=== PATIENT | male | born 1940 | race Caucasian/White ===

== ENCOUNTER 2021-07-05 09:13 | Inpatient (IN) | payer MEDICARE, OTHER ==
[~2021-07-05] VITALS: Ht 188 cm; Wt 82.6 kg
[2021-07-05 09:41] LABS: HEMATOCRIT 47.5 % (42-54); MEAN CORPUSCULAR HEMOGLOBIN 29.9 pg (27.0-33.0); MEAN CORPUSCULAR HGB CONC 33.7 g/dL (32.0-36.0); MEAN CORPUSCULAR VOLUME 88.8 fL (79-99); RED BLOOD CELL COUNT(AUTO) 5.35 MIL/uL (4.50-6.20); RED CELL DISTRIBUTION WIDTH 13.5 % (11.0-15.5); WHITE BLOOD COUNT (AUTO) 6.7 K/uL (4.8-10.8)
[2021-07-05 10:23] LABS: ALBUMIN 3.5 g/dL (3.5-5.0); BILIRUBIN,TOTAL 0.3 mg/dL (0.2-1.0); CREATININE 1.2 mg/dL (0.5-1.5); POTASSIUM 4.5 mmol/L (3.5-5.1); TOTAL PROTEIN, SERUM 7.3 g/dL (6.0-8.3)
[2021-07-05] MEDS ORDERED: SOLU-MEDROL 125MG VIAL IVP ONE (10:30)
[2021-07-05] MEDS ORDERED: IPRATROPIUM/ALBUTEROL SULFATE 3 ML SOLUTION IH ONE (10:30)
[2021-07-05] MEDS ORDERED: ALBUTEROL INHALER 90MCG/INH IH ONE (10:37)
[2021-07-05] MEDS ORDERED: ALBUTEROL INHALER 90MCG/INH IH PRN (11:00)
[2021-07-05] MEDS ORDERED: ONDANSETRON 4MG INJ IV PRN (11:30)
[2021-07-05] MEDS ORDERED: HYDRALAZINE 20MG/ML VIAL IV PRN (11:30)
[2021-07-05] MEDS ORDERED: AZITHROMYCIN 250 MG TABLET PO ONE ×2 (11:30→12:48)
[2021-07-05] MEDS ORDERED: CEFTRIAXONE 1G VIAL IV SCH (11:30)
[2021-07-05] MEDS ORDERED: ACETAMINOPHEN 325 MG TAB PO PRN (11:30)
[2021-07-05] MEDS ORDERED: CEFTRIAXONE 1G VIAL IVP ONE (11:30)
[2021-07-05] MEDS: IPRATROPIUM/ALBUTEROL SULFATE 3 ML SOLUTION IH SCH ×2 (12:00→18:00)
[2021-07-05] MEDS ORDERED: IPRATROPIUM/ALBUTEROL SULFATE 3 ML SOLUTION IH PRN (13:00)
[2021-07-05 13:50] LABS: ABG BASE EXCESS -0.8 mmol/L (-2.0-3.0); ABG HCO3 24.5 mmol/L (21.0-28.0); ABG PCO2 43 mmHg (35-48)
[2021-07-05] MEDS ORDERED: ALBUTEROL INHALER 90MCG/INH IH SCH (14:00)
[2021-07-05] MEDS: FAMOTIDINE 20MG VIAL IV SCH (20:13)
[2021-07-06] MEDS: ACETAMINOPHEN 325 MG TAB PO PRN (00:44)
[2021-07-06] MEDS: IPRATROPIUM/ALBUTEROL SULFATE 3 ML SOLUTION IH SCH ×2 (06:00)
[2021-07-06 07:24] LABS: HEMATOCRIT 44.8 % (42-54); MEAN CORPUSCULAR HEMOGLOBIN 29.5 pg (27.0-33.0); MEAN CORPUSCULAR VOLUME 89.4 fL (79-99); RED BLOOD CELL COUNT(AUTO) 5.01 MIL/uL (4.50-6.20); RED CELL DISTRIBUTION WIDTH 13.2 % (11.0-15.5); WHITE BLOOD COUNT (AUTO) 7.4 K/uL (4.8-10.8)
[2021-07-06 07:46] LABS: CREATININE 1.2 mg/dL (0.5-1.5); POTASSIUM 4.2 mmol/L (3.5-5.1)
[2021-07-06] MEDS ORDERED: CEFEPIME HCL 2 GM VIAL IVP SCH (09:00)
[2021-07-06] MEDS ORDERED: DEXAMETHASONE 4 MG TAB PO SCH (09:00)
[2021-07-06] MEDS: FAMOTIDINE 20MG VIAL IV SCH (09:02)
[2021-07-06] MEDS: ENOXAPARIN SODIUM 40 MG/0.4 ML SYRINGE SQ SCH (09:03)
[2021-07-06] MEDS ORDERED: ALBUTEROL INHALER 90MCG/INH IH PRN (12:00)
[2021-07-06] MEDS ORDERED: IPRATROPIUM 0.5 MG/2.5 ML INH IH SCH (12:00)
[2021-07-06] MEDS: DEXAMETHASONE SOD PHOSPHATE 4 MG/ML 1ML VIAL IV SCH (12:09)
[2021-07-07 00:11] VITALS: BP 138/85
[2021-07-07 04:00] VITALS: BP 147/78
[2021-07-07] MEDS ORDERED: PHARMACY COMMUNICATION MISC SCH (07:00)
[2021-07-07] MEDS ORDERED: PHARMACY COMMUNICATION**REMDESIVIR MISC SCH (07:00)
[2021-07-07 07:28] LABS: BASOPHILS % (AUTO) 0.1 % (0.0-5.0); MEAN CORPUSCULAR HEMOGLOBIN 29.3 pg (27.0-33.0); MEAN CORPUSCULAR VOLUME 88.7 fL (79-99); MONOCYTES % (AUTO) 8.5 % (3.0-13.0); NEUTROPHILS % (AUTO) 77.7 % (40.0-77.0); PLATELET COUNT (AUTO) 180 K/uL (130-400); RED BLOOD CELL COUNT(AUTO) 4.85 MIL/uL (4.50-6.20); RED CELL DISTRIBUTION WIDTH 13.2 % (11.0-15.5); WHITE BLOOD COUNT (AUTO) 10.6 K/uL (4.8-10.8)
[2021-07-07 07:42] LABS: ALBUMIN 3.2 g/dL (3.5-5.0); BILIRUBIN,TOTAL 0.3 mg/dL (0.2-1.0); CREATININE 1.2 mg/dL (0.5-1.5); POTASSIUM 4.5 mmol/L (3.5-5.1); TOTAL PROTEIN, SERUM 6.9 g/dL (6.0-8.3)
[2021-07-07] MEDS: ACETAMINOPHEN 325 MG TAB PO PRN (07:42)
[2021-07-07 08:30] VITALS: BP 149/80
[2021-07-07] MEDS: ENOXAPARIN SODIUM 40 MG/0.4 ML SYRINGE SQ SCH (08:51)
[2021-07-07] MEDS ORDERED: ALBU18HF7 IH (10:06)
[2021-07-07] MEDS ORDERED: OMEP40CA21 PO (10:06)
[2021-07-07 12:00] VITALS: BP 138/70
[2021-07-07] MEDS: DEXAMETHASONE SOD PHOSPHATE 4 MG/ML 1ML VIAL IV SCH (12:06)
[2021-07-07] MEDS: CEFAZOLIN SODIUM 1 GM VIAL IVP SCH ×2 (13:22→23:57)
[2021-07-07 16:00] VITALS: BP 140/80
[2021-07-07] MEDS: BARICITINIB (EUA) 2 MG TABLET PO SCH (16:00)
[2021-07-07] MEDS ORDERED: CEPH500B PO (16:36)
[2021-07-07] MEDS ORDERED: DEXA6TAB PO (16:36)
[2021-07-07] MEDS ORDERED: ALBUTEROL INHALER 90MCG/INH IH PRN (17:00)
[2021-07-07 20:08] VITALS: BP 132/78
[2021-07-08 00:08] VITALS: BP 123/81
[2021-07-08 04:08] VITALS: BP 128/80
[2021-07-08 04:13] LABS: BASOPHILS % (AUTO) 0.1 % (0.0-5.0); EOSINOPHILS % (AUTO) 1.9 % (0.0-8.0); HEMATOCRIT 43.4 % (42-54); LYMPHOCYTES % (AUTO) 19.7 % (21.0-51.0); MEAN CORPUSCULAR HEMOGLOBIN 29.8 pg (27.0-33.0); MEAN CORPUSCULAR HGB CONC 33.2 g/dL (32.0-36.0); MEAN CORPUSCULAR VOLUME 89.7 fL (79-99); MONOCYTES % (AUTO) 9.8 % (3.0-13.0); NEUTROPHILS % (AUTO) 67.9 % (40.0-77.0); PLATELET COUNT (AUTO) 189 K/uL (130-400); RED BLOOD CELL COUNT(AUTO) 4.84 MIL/uL (4.50-6.20); RED CELL DISTRIBUTION WIDTH 13.2 % (11.0-15.5); WHITE BLOOD COUNT (AUTO) 8.9 K/uL (4.8-10.8)
[2021-07-08 04:32] LABS: ALBUMIN 3.2 g/dL (3.5-5.0); BILIRUBIN,TOTAL 0.3 mg/dL (0.2-1.0); CREATININE 1.1 mg/dL (0.5-1.5); POTASSIUM 4.9 mmol/L (3.5-5.1); TOTAL PROTEIN, SERUM 6.9 g/dL (6.0-8.3)
[2021-07-08] MEDS: ENOXAPARIN SODIUM 40 MG/0.4 ML SYRINGE SQ SCH (08:10)
[2021-07-08 09:09] VITALS: BP 153/88
[2021-07-08] MEDS: BARICITINIB (EUA) 2 MG TABLET PO SCH (10:21)
[2021-07-08] MEDS ORDERED: IPRATROPIUM 0.5 MG/2.5 ML INH IH PRN (11:00)
[2021-07-08 12:00] VITALS: BP 129/73
[2021-07-08] MEDS: CEFAZOLIN SODIUM 1 GM VIAL IVP SCH (12:32)
[2021-07-08] MEDS ORDERED: ALBUTEROL INHALER 90MCG/INH IH PRN (13:00)
[2021-07-08] MEDS ORDERED: REMDESIVIR (EUA) 520 200 MG in 0.9% NACL 250ML 250 ML IV ONE (14:00)
[2021-07-08] MEDS ORDERED: COMPOUND IV REFRIGERATED 1 EACH IVSOLN MISC PRN (14:00)
[2021-07-08 17:39] VITALS: BP 137/61
[2021-07-09] MEDS ORDERED: REMDESIVIR LABS MISC SCH (06:00)
[2021-07-09] MEDS ORDERED: PANTOPRAZOLE 40 MG TAB DR PO SCH (09:00)
[2021-07-09] MEDS ORDERED: DEXAMETHASONE 4 MG TAB PO SCH (13:00)
[2021-07-09] MEDS ORDERED: REMDESIVIR (EUA) 520 100 MG in 0.9% NACL 250ML 250 ML IV SCH (14:00)
== END 2021-07-08 18:45 | disposition home or self-care (01) | DRG 177 ==
LOC: EDH 09:13 → EDHIP 11:22 → 4BH 07-07 08:18
PROVIDERS: ADMIT Hospitalist; ATTEND Internal Medicine
PROC: 5A09357 Assistance with Respiratory Ventilation, Less than 24 Consecutive Hours, Continuous Positive Airway Pressure (ICD-10-PCS; principal; 2021-07-05)
PROC: 5A09357 Assistance with Respiratory Ventilation, Less than 24 Consecutive Hours, Continuous Positive Airway Pressure (ICD-10-PCS; 2021-07-07)
PROC: XW0DXM6 Introduction of Baricitinib into Mouth and Pharynx, External Approach, New Technology Group 6 (ICD-10-PCS; 2021-07-07)
PROC: XW033E5 Introduction of Remdesivir Anti-infective into Peripheral Vein, Percutaneous Approach, New Technology Group 5 (ICD-10-PCS; 2021-07-07)
DX: U07.1 COVID-19 (principal); J96.01 Acute respiratory failure with hypoxia; J12.82 Pneumonia due to coronavirus disease 2019; J44.1 Chronic obstructive pulmonary disease with (acute) exacerbation; J44.0 Chronic obstructive pulmonary disease with (acute) lower respiratory infection; G47.33 Obstructive sleep apnea (adult) (pediatric); K21.9 Gastro-esophageal reflux disease without esophagitis; B96.1 Klebsiella pneumoniae [K. pneumoniae] as the cause of diseases classified elsewhere; Z87.891 Personal history of nicotine dependence; Z87.442 Personal history of urinary calculi; Z86.12 Personal history of poliomyelitis
CPT/HCPCS: 36415; 36600; 71045; 80048; 80053; 82550; 82728; 82803; 83036; 83615; 83874; 83880; 84145; 84484; 85025; 85027; 85378; 86140; 87040; 87071; 87077; 87186; 87205; 87635; 87804; 93005; 93970; 94760; C9803; G0378; J0690; J0692; J0696; J1100; J1650; J2930; J3490; J7050; J8540

== ENCOUNTER 2021-07-28 12:38 | Observation (INO) | payer MEDICARE ==
[~2021-07-28] VITALS: Ht 175.3 cm; Wt 82.1 kg
[~2021-07-28 12:38] MED LIST: ALBU18HF7 IH; CEPH500B PO; DEXA6TAB PO; OMEP40CA21 PO
[2021-07-28 13:07] LABS: BASOPHILS % (AUTO) 0.5 % (0.0-5.0); EOSINOPHILS % (AUTO) 1.7 % (0.0-8.0); LYMPHOCYTES % (AUTO) 18.3 % (21.0-51.0); MEAN CORPUSCULAR HEMOGLOBIN 29.9 pg (27.0-33.0); MEAN CORPUSCULAR HGB CONC 33.5 g/dL (32.0-36.0); MEAN CORPUSCULAR VOLUME 89.3 fL (79-99); MONOCYTES % (AUTO) 10.4 % (3.0-13.0); NEUTROPHILS % (AUTO) 68.5 % (40.0-77.0); PLATELET COUNT (AUTO) 225 K/uL (130-400); RED BLOOD CELL COUNT(AUTO) 4.48 MIL/uL (4.50-6.20); RED CELL DISTRIBUTION WIDTH 13.1 % (11.0-15.5); WHITE BLOOD COUNT (AUTO) 7.9 K/uL (4.8-10.8)
[2021-07-28 13:17] LABS: CREATININE 1.1 mg/dL (0.5-1.5); POTASSIUM 3.9 mmol/L (3.5-5.1)
[2021-07-28 13:19] LABS: INR 1.01 (0.85-1.15)
[2021-07-28 13:21] LABS: PARTIAL THROMBOPLASTIN TIME 29.9 SEC (26.3-35.5)
[2021-07-28 13:22] LABS: ALBUMIN 3.1 g/dL (3.5-5.0); BILIRUBIN,TOTAL 0.3 mg/dL (0.2-1.0); TOTAL PROTEIN, SERUM 7.9 g/dL (6.0-8.3)
[2021-07-28] MEDS ORDERED: SOLU-MEDROL 125MG VIAL IVP ONE (13:30)
[2021-07-28] MEDS ORDERED: IPRATROPIUM/ALBUTEROL SULFATE 3 ML SOLUTION IH ONE (13:30)
[2021-07-28] MEDS ORDERED: ASPIRIN 325MG TAB PO ONE (13:30)
[2021-07-28] MEDS ORDERED: 0.9%NACL 1000ML 1,000 ML IV ONE (13:30)
[2021-07-28 13:34] LABS: B-TYPE NATRIURETIC PEPTIDE 56 pg/mL (0-100)
[2021-07-28] MEDS ORDERED: IOHEXOL 350 MG/ML 100ML INFUS..BTL IV ONE (14:38)
[2021-07-28] MEDS ORDERED: IOHEXOL-350 75 ML VIAL IV ONE (15:15)
[2021-07-28] MEDS ORDERED: ASPIRIN 325MG EC TAB PO ONE (15:53)
[2021-07-28] MEDS ORDERED: SOLU-MEDROL 125MG VIAL ONE (15:54)
[2021-07-28 17:19] LABS: HEMOGLOBIN A1C 6.4 % (4.0-6.0)
[2021-07-28] MEDS: FAMOTIDINE 20MG VIAL IV SCH (20:28)
[2021-07-28] MEDS ORDERED: AMIODARONE 900MG VIAL 540 MG in DEXTROSE 5%-WATER 300 ML IV STA (22:26)
[2021-07-28] MEDS ORDERED: AMIODARONE 900MG VIAL 360 MG in DEXTROSE 5%-WATER 200 ML IV SCH (22:30)
[2021-07-28] MEDS ORDERED: AMIODARONE 900MG VIAL 150 MG in DEXTROSE 5%-WATER 100 ML IV SCH (22:30)
[2021-07-28] MEDS: IPRATROPIUM/ALBUTEROL SULFATE 3 ML SOLUTION IH SCH (23:35)
[2021-07-29] MEDS: IPRATROPIUM/ALBUTEROL SULFATE 3 ML SOLUTION IH SCH ×3 (06:24→18:35)
[2021-07-29 06:30] LABS: BASOPHILS % (AUTO) 0.1 % (0.0-5.0); HEMATOCRIT 39.9 % (42-54); LYMPHOCYTES % (AUTO) 12.8 % (21.0-51.0); MEAN CORPUSCULAR HEMOGLOBIN 28.8 pg (27.0-33.0); MEAN CORPUSCULAR HGB CONC 32.1 g/dL (32.0-36.0); MEAN CORPUSCULAR VOLUME 89.7 fL (79-99); MONOCYTES % (AUTO) 2.2 % (3.0-13.0); NEUTROPHILS % (AUTO) 84.3 % (40.0-77.0); PLATELET COUNT (AUTO) 229 K/uL (130-400); RED BLOOD CELL COUNT(AUTO) 4.45 MIL/uL (4.50-6.20); RED CELL DISTRIBUTION WIDTH 13.1 % (11.0-15.5); WHITE BLOOD COUNT (AUTO) 6.7 K/uL (4.8-10.8)
[2021-07-29 06:42] LABS: CREATININE 1.1 mg/dL (0.5-1.5); POTASSIUM 4.8 mmol/L (3.5-5.1)
[2021-07-29] MEDS: SOLU-MEDROL 40MG VIAL IVP SCH ×2 (08:33→21:16)
[2021-07-29] MEDS: FAMOTIDINE 20MG VIAL IV SCH ×2 (08:33→21:16)
[2021-07-29] MEDS: ENOXAPARIN SODIUM 40 MG/0.4 ML SYRINGE SQ SCH (08:34)
[2021-07-29] MEDS: DOXYCYCLINE 100MG+NS 250ML IV SCH ×2 (11:03→21:34)
[2021-07-29 22:05] VITALS: BP 135/67
[2021-07-30] MEDS: IPRATROPIUM/ALBUTEROL SULFATE 3 ML SOLUTION IH SCH ×3 (00:48→11:15)
[2021-07-30 04:42] VITALS: BP 110/81
[2021-07-30 08:00] VITALS: BP 126/68
[2021-07-30 08:54] LABS: MEAN CORPUSCULAR HEMOGLOBIN 30.2 pg (27.0-33.0); MEAN CORPUSCULAR HGB CONC 33.5 g/dL (32.0-36.0); MEAN CORPUSCULAR VOLUME 90.2 fL (79-99); RED BLOOD CELL COUNT(AUTO) 4.1 MIL/uL (4.50-6.20); RED CELL DISTRIBUTION WIDTH 13.5 % (11.0-15.5); WHITE BLOOD COUNT (AUTO) 13.4 K/uL (4.8-10.8)
[2021-07-30 09:03] LABS: CREATININE 1.3 mg/dL (0.5-1.5); POTASSIUM 4.1 mmol/L (3.5-5.1)
[2021-07-30] MEDS: ENOXAPARIN SODIUM 40 MG/0.4 ML SYRINGE SQ SCH (10:24)
[2021-07-30] MEDS: FAMOTIDINE 20MG VIAL IV SCH (10:24)
[2021-07-30] MEDS: SOLU-MEDROL 40MG VIAL IVP SCH (10:24)
[2021-07-30] MEDS: DOXYCYCLINE 100MG+NS 250ML IV SCH (10:24)
[2021-07-30 12:00] VITALS: BP 117/65
[2021-07-30] MEDS ORDERED: DOXY100T2 PO (12:39)
[2021-07-30] MEDS ORDERED: AMOX-426 PO (12:48)
== END 2021-07-30 16:00 | disposition home or self-care (01) ==
LOC: EDH 12:38 → INTOOBSV 16:53 → EDHIP 16:53 → 3BH 07-29 21:23
PROVIDERS: ADMIT Hospitalist; ATTEND Hospitalist
DX: J44.1 Chronic obstructive pulmonary disease with (acute) exacerbation (principal); J96.21 Acute and chronic respiratory failure with hypoxia; R00.0 Tachycardia, unspecified; Z20.822 Contact with and (suspected) exposure to COVID-19; K21.9 Gastro-esophageal reflux disease without esophagitis; J44.9 Chronic obstructive pulmonary disease, unspecified; E86.0 Dehydration; R53.1 Weakness; Z87.891 Personal history of nicotine dependence; Z87.442 Personal history of urinary calculi; Z87.01 Personal history of pneumonia (recurrent); Z79.899 Other long term (current) drug therapy
CPT/HCPCS: 36415 ×3; 71045; 71275; 80048 ×2; 80053; 83036; 83880; 84145; 84443; 84484 ×3; 85025 ×2; 85027; 85610; 85730; 87635; 93005; 93970; 94640 ×8; 94664; 96361; 96372 ×2; 96374; 96375; 96376 ×2; 99285; G0378 ×6; J1650 ×2; J2920 ×3; J2930; J3490 ×7; Q9967 ×2; J0282; J7060